=== PATIENT | female | born 1985 | race Caucasian/White ===

== ENCOUNTER 2020-02-29 18:34 | Emergency (ER) | payer OTHER ==
[~2020-02-29] VITALS: Ht 160 cm; Wt 56.7 kg
[2020-02-29 19:08] LABS: BASOPHILS # (AUTO) 0.1 /CMM (0.0-0.2); BASOPHILS % (AUTO) 0.9 % (0.0-2.0); EOSINOPHILS % (AUTO) 1.9 % (0.0-6.0); HEMATOCRIT 41 % (33-45); HEMOGLOBIN 13.7 g/dL (11.5-14.8); LYMPHOCYTES # (AUTO) 1.6 /CMM (0.8-4.8); MEAN CORPUSCULAR HGB CONC 33 g/dl (31.0-36.0); MEAN CORPUSCULAR VOLUME 94 fL (82-100); MONOCYTES # (AUTO) 0.3 /CMM (0.1-1.30); MONOCYTES % (AUTO) 5.9 % (2.0-12.0); NEUTROPHILS # (AUTO) 3.7 /CMM (1.8-8.9); NEUTROPHILS % (AUTO) 63.3 % (43.0-81.0); PLATELET COUNT (AUTO) 249 /CMM (150-450); WHITE BLOOD COUNT (AUTO) 5.8 K/uL (4.3-11.0)
--- NOTE | 2020-02-29 19:10 | NUR ---
PT AAOX4. C/O SI WITH PLAN TO CUT HER WRIST. -HI. PLACED IN GOWN AND ON MONITOR AND PULSE OX. BELONINGS PLACED IN LOCKER. NO ACUTE DISTRESS NOTED. AWAITING PA FOR EVAL AND ORDERS.
--- NOTE | 2020-02-29 19:12 | NUR ---
PARAG GEIGER 6O FROM A [employer] STATION, WANTS MED REFILL FOR ZYPREXA, TYLENOL AND TRAZADONE. NO ACUTE DISTRESS.
[2020-02-29 19:17] LABS: CALCIUM, SERUM 8.6 mg/dL (8.5-10.1); CARBON DIOXIDE 26 mmol/L (21-32); CHLORIDE 101 mmol/L (98-107); CREATININE 0.8 mg/dL (0.6-1.3); GLUCOSE 150 mg/dL (74-106); POTASSIUM 3.4 mmol/L (3.5-5.1); SODIUM SERUM 135 mmol/L (136-145); UREA NITROGEN, BLOOD 11 mg/dL (7-18)
[2020-02-29 19:22] LABS: ACETAMINOPHEN < 2 ug/ml (10-30); ALANINE AMINOTRANSFERASE 17 U/L (12-78); ALBUMIN 3.7 g/dL (3.4-5.0); ALCOHOL, BLOOD < 3 mg/dL (0-0); ALKALINE PHOSPHATASE 68 U/L (46-116); ASPARTATE AMINOTRANSFERASE 20 U/L (15-37); BILIRUBIN,DIRECT 0.1 mg/dL (0.0-0.2); BILIRUBIN,TOTAL 0.4 mg/dL (0.2-1.0); SALICYLATE 6.5 mg/dL (2.8-20.0); TOTAL PROTEIN, SERUM 7.4 g/dL (6.4-8.2)
[2020-02-29 19:26] LABS: APPEARANCE,URINE Slightly Cloudy (CLEAR); BILIRUBIN,URINE MODERATE (NEGATIVE); BLOOD, URINE Negative Ery/uL (NEGATIVE); KETONES,URINE Negative (NEGATIVE); LEUKOCYTE ESTERASE ,URINE Negative (NEGATIVE); NITRITE, URINE Negative (NEGATIVE); PH,URINE 5.5 (5.0-8.0); PROTEIN,URINE 100 mg/dl (NEGATIVE); UGLUCOSE Negative (NEGATIVE)
[2020-02-29 19:28] LABS: COLOR,URINE DARK YELLOW (YELLOW)
[2020-02-29 19:42] LABS: RBC,URINE 0-2 /HPF (0-2)
[2020-02-29 19:43] LABS: BACTERIA,URINE Moderate /HPF (None Seen); CALCIUM OXALATE CRYSTALS,UR Few /HPF (None Seen); SQUAMOUS EPITHELIAL CELL,UR Moderate /HPF (None Seen); WBC,URINE 0-2 /HPF (0-3)
--- NOTE | 2020-02-29 20:56 | NUR ---
COVID SWAB SENT TO LAB
[2020-02-29] MEDS ORDERED: OLANZAPINE 5 MG TABLET ONE (21:09)
--- NOTE | 2020-02-29 21:11 | NUR ---
PROVIDED PT WITH FOOD.
[2020-02-29] MEDS ORDERED: OLANZAPINE 5 MG TABLET PO ONE (21:30)
--- NOTE | 2020-02-29 21:37 | NUR ---
PT VERBALIZED SHE IS NOT SI NOR HI. VSS.
--- NOTE | 2020-02-29 21:37 | NUR ---
Patient discharged to home in stable condition. Written and verbal after care instructions given. Patient verbalizes understanding of instruction. Pt ambulated with steady gait.
[2020-02-29 21:38] VITALS: BP 117/75
== END 2020-02-29 21:38 | disposition home or self-care (01) ==
LOC: ER 18:34
DX: F31.9 Bipolar disorder, unspecified (principal); Z11.59 Encounter for screening for other viral diseases
CPT/HCPCS: 36415; 80048; 80076; 80305; 80307; 80329; 81001; 84703; 85025; 87086; 87426; 99284; G0480; 81000-TC